=== PATIENT | female | born 1970 | race Hispanic/Latino ===

== ENCOUNTER 2024-04-03 12:29 | Emergency (ER) | payer MEDICAID ==
[~2024-04-03] VITALS: Ht 170.2 cm; Wt 83.9 kg
[~2024-04-03 12:29] MED LIST: AMLO5TAB5 PO; FLUO40CA7 PO; LEVE750T4 PO; TOPI100T31 PO; TOPI25TA42 PO
--- NOTE | 2024-04-03 12:45 | ERN ---
ED Note History of Present Illness Stated Complaint: ANXIETY Chief Complaint: Anxiety/Panic Attack Time Seen by MD: 12:31 Dictation: PATIENT IS A 54-YEAR-OLD FEMALE HERE WITH HER WITH COMPLAINTS OF WANTING TO AND DOES NOT KNOW WHAT TO DO FOR THE LAST MONTH. SHE STATES SHE JUST GETS VERY NERVOUS ANXIOUS WANTS TO RUN CRIES ALL THE TIME. SHE STATES SHE WAS TAKING A GENERIC PROZAC THAT WAS PRESCRIBED TO HER15 YEARS AGO HOWEVER HAS NOT SEEN A DOCTOR FOR THIS IN SEVERAL YEARS. HER 'S WHO IS WITH HER STATES THAT SHE WAS HOSPITALIZED IN THE PAST FOR SUICIDAL IDEATION AND DEPRESSION. HE SAID HE JUST CAN NO LONGER HELP HER AT HOME AND SHE NEEDS PROFESSIONAL HELP. SHE DENIES ANY PLAN FOR SUICIDE. PATIENT TEARFUL WITH EXAMINATION Allergies: Coded Allergies: No Known Allergies (Unverified Allergy, Unknown, 04/30/14) Home Meds Reported Medications Fluoxetine HCl (Prozac) 40 Mg Capsule, 40 MG PO DAILY, CAP 04/30/14 Amlodipine Besylate (Norvasc) 5 Mg Tablet, 5 MG PO DAILY, TAB 04/30/14 Topiramate (Topamax) 100 Mg Tablet, 100 MG PO BID, TAB 04/30/14 Topiramate (Topamax) 25 Mg Tablet, 25 MG PO BID, TAB 04/30/14 Levetiracetam (Keppra) 750 Mg Tablet, 750 MG PO DAILY, TAB 04/30/14 Past Medical History Past Medical History: Depression, Liver Disease, Renal Disese, Seizure Surgical History: None PSYCH History: depression History: Not Applicable RN Note Reviewed/Agreed w/PFSH: Yes Review of System Dictation CONSTITUTIONAL: NEGATIVE EXCEPT FOR HPI HEAD/FACE: NEGATIVE EXCEPT FOR HPI EENT: NEGATIVE EXCEPT FOR HPI RESPIRATORY: NEGATIVE EXCEPT FOR HPI GASTROINTESTINAL/ABDOMINAL: NEGATIVE EXCEPT FOR HPI GENITOURINARY: NEGATIVE EXCEPT FOR HPI MUSCULOSKELETAL: NEGATIVE EXCEPT FOR HPI INTEGUMENTARY: NEGATIVE EXCEPT FOR HPI NEUROLOGICAL/PSYCH: NEGATIVE EXCEPT FOR HPI DEPRESSION WITH SUICIDAL IDEATION HEMATOLOGIC/LYMPHATIC: NEGATIVE EXCEPT FOR HPI ALL SYSTEMS NEGATIVE, EXCEPT NOTED ABOVE. 13 POINT REVIEW OF SYSTEMS ASSESSED AND ALL NEGATIVE EXCEPT FOR ABOVE. Initial Vital Sign VS Vital Signs Date Time Temp Pulse Resp B/P (MAP) Pulse Ox O2 Delivery O2 Flow Rate FiO2 04/03/24 12:31 98.1 96 18 140/93 98 10/8/24 13:04 Room Air* 0 21 Physical Exam Dictation VITAL SIGNS REVIEWED GENERAL APPEARANCE: ALERT, ORIENTED X 3, PATIENT VERY TEARFUL WITH THE EXAM STATES SHE CAN NO LONGER TAKE IT ANYMORE. SHE SAID I NEED HELP AND NOBODY WANTS TO HELP ME. FEEL LIKE DYING HEAD AND FACE: NON-TRAUMATIC. EYES: PERRL, PINK CONJUNCTIVAS, EYELID NO TRAUMA, ANTERIOR CHAMBER WITH ARCUS SENILIS. EARS: PINNAS INTACT AND NO SIGNS OF TRAUMA OR ERYTHEMA EAR CANALS CLEAR AND NO DISCHARGE TM NO ERYTHEMA NOSE: NO DISCHARGE, NO BLEEDING. OROPHARYNX: MOUTH NORMAL, TONGUE PINK, PHARYNX CLEAR,NO ERYTHEMA, TONSILS NO EXUDATES, NO ABSCESSES NOTED, MUCOUS MEMBRANE MOIST NECK: SUPPLE, NON-TENDER, NO THYROMEGALY, NO MASSES, NO JVD, NO BRUITS BREAST:DEFERRED CHEST:NO TENDERNESS, NO CREPITUS, NO PARADOXICAL MOVEMENT, NO RETRACTIONS LUNGS:CLEAR, WELL-VENTILATED, SYMMETRIC, NO RALES, NO WHEEZING, NO RHONCHI, NO STRIDOR, GOOD BREATH SOUNDS BILATERALLY HEART: REGULAR RATE, REGULAR RHYTHM, NO MURMUR, NO GALLOPS VASCULAR: NO PERIPHERAL EDEMA, ABDOMEN: SOFT, POSITIVE BOWEL SOUNDS, NONDISTENDED, NO GUARDING, NONTENDER, NO REBOUND, NO MASSES NO HEPATOMEGALY, NO SPLENOMEGALY, NO CARRERA'S SIGN, NO HERNIAS. RECTAL: DEFERRED GENITAL: DEFERRED NEUROLOGICAL: NORMAL SPEECH, MOTOR FUNCTION INTACT, SENSORY FUNCTION INTACT DEPRESSED AFFECT AND TEARFUL. NO PLAN FOR SUICIDE MUSCULOSKELETAL: NECK NONTENDER, FULL RANGE OF MOTION, BACK NONTENDER, FULL RANGE OF MOTION, EXTREMITIES: NONTENDER, FULL RANGE OF MOTION SKIN: COLOR PINK, DRY, NO TURGOR, NO RASH, NO LACERATIONS, NO ABRASIONS, NO CONTUSIONS. LYMPHATIC: DEFERRED Results (Laboratory/Radiology) Laboratory/Radiology Laboratory Tests Test 04/03/24 10:06 04/03/24 12:53 Urine Color LIGHT-YELLOW (YELLOW) Urine Appearance CLEAR (CLEAR) Urine pH 6.5 (5.0-8.0) Urine Specific [place] 1.008 (1.001-1.031) Urine Protein NEGATIVE mg/dL (NEGATIVE) Urine Glucose (UA) NEGATIVE mg/dL (NEGATIVE) Urine Ketones NEGATIVE mg/dL (NEGATIVE) Urine Occult Blood NEGATIVE (NEGATIVE) Urine Nitrate NEGATIVE (NEGATIVE) Urine Bilirubin NEGATIVE mg/dL (NEGATIVE) Urine Urobilinogen 0.2 mg/dL (0.2-1.0) Urine Leukocyte Esterase 25 Bailee/uL (NEGATIVE) H Urine RBC 0-1 /HPF (0-1) Urine WBC 0-1 /HPF (0-1) Urine Squamous Epithelial Cells RARE /HPF (0-2) Urine Bacteria None /HPF (None Seen) Urine Opiates Screen NEGATIVE (NEGATIVE) Urine Barbiturates Screen NEGATIVE (NEGATIVE) Urine Phencyclidine Screen NEGATIVE (NEGATIVE) Urine Amphetamines Screen NEGATIVE (NEGATIVE) Urine Benzodiazepines Screen POSITIVE (NEGATIVE) H Urine Cocaine Screen NEGATIVE (NEGATIVE) Urine Marijuana (THC) Screen NEGATIVE (NEGATIVE) White Blood Count 3.9 K/uL (4.8-10.8) L Red Blood Count 4.97 MIL/uL (4.00-5.50) Hemoglobin 15.6 g/dL (12.0-16.0) Hematocrit 45.5 % (36-48) Mean Corpuscular Volume 91.5 fL (79-99) Mean Corpuscular Hemoglobin 31.4 pg (27.0-33.0) Mean Corpuscular Hemoglobin Concent 34.3 g/dL (32.0-36.0) Red Cell Distribution Width 11.0 % (11.0-15.5) Platelet Count 186 K/uL (130-400) Mean Platelet Volume 10.6 fL (7.5-10.5) H Immature Granulocyte % (Auto) 0.3 % (0-1) Neutrophils (%) (Auto) 66.1 % (40.0-77.0) Lymphocytes (%) (Auto) 26.9 % (21.0-51.0) Monocytes (%) (Auto) 6.7 % (3.0-13.0) Eosinophils (%) (Auto) 0.0 % (0.0-8.0) Basophils (%) (Auto) 0.0 % (0.0-5.0) Neutrophils # (Auto) 2.6 K/uL (1.8-7.7) Lymphocytes # (Auto) 1.1 K/uL (1.0-4.8) Monocytes # (Auto) 0.3 K/uL (0.1-1.0) Eosinophils # (Auto) 0.00 K/uL (0.00-0.70) Basophils # (Auto) 0.00 K/uL (0.00-0.20) Absolute Immature Granulocyte (auto 0.01 K/uL (0-1) Nucleated Red Blood Cells 0.0 % (0.0-0.19) Sodium Level 146 mmol/L (136-145) H Potassium Level 4.1 mmol/L (3.5-5.1) Chloride Level 107 mmol/L (101-111) Carbon Dioxide Level 29 mmol/L (21-32) Blood Urea Nitrogen 8 mg/dL (7-18) Creatinine 1.0 mg/dL (0.5-1.0) Glomerular Filtration Rate Calc 67 mL/min (>90) Random Glucose 132 mg/dL (70-105) H Total Calcium 9.7 mg/dL (8.5-10.1) Total Creatine Kinase 74 U/L (21-232) Salicylates Level < 2.8 mg/dL (2.8-20.0) L Acetaminophen Level < 1 mcg/mL (10-30) L Serum Alcohol < 3 mg/dL (0-10) Labs Reviewed?: Yes ED Course ED Course Orders Procedure Category Date Status Time Suicide Precautions CPOE 04/03/24 Transmitted 12:42 Drug Screen Urine LAB 04/03/24 Complete 12:42 Cbc With Differential LAB 04/03/24 Complete 12:42 Alcohol, Blood LAB 04/03/24 Complete 12:42 Salicylate LAB 04/03/24 Complete 12:42 Acetaminophen LAB 04/03/24 Complete 12:42 Urinalysis Profile LAB 04/03/24 Complete 12:42 12 Lead Ekg Tracing- EKG 04/03/24 Logged Technical 12:42 Creatine Kinase, Total LAB 04/03/24 Complete 12:42 Basic Metabolic Panel LAB 04/03/24 Complete 12:42 Vital Signs Date Time Temp Pulse Resp B/P (MAP) Pulse Ox O2 Delivery O2 Flow Rate FiO2 04/03/24 15:58 98.2 65 18 115/85 98 Room Air* 0 21 04/03/24 13:04 98.2 65 18 115/95 99 Room Air* 0 21 04/03/24 12:31 98.1 96 18 140/93 98 1732, PATIENT DOES NOT MEET CRITERIA FOR INPATIENT PSYCH TREATMENT. WE WILL BE DISCHARGED HOME FOR OUTPATIENT FOLLOW UP TOMORROW WE WILL BE GIVEN VISTARIL PAMOATE FOR ANXIETY. HAS BEEN AT BEDSIDE IN HIS AWARE SHE WILL BE DISCHARGED Medical Decision Making MDM MEDICAL DISCHARGE MAKING BASED ON LABS FOR PSYCH CLEARANCE. LABS NEGATIVE PATIENT DOES NOT MEET CRITERIA FOR INPATIENT PSYCH TREATMENT. DISCHARGED HOME WITH VISTARIL PAMOATE 100 MG Q 8 HOURS P.R.N. INSOMNIA ANXIETY SHE IS TO FOLLOW UP WITH HER PRIMARY CARE DOCTOR DX & DISP Disposition: Discharge Departure Impression: Primary Impression: Passive suicidal ideations Additional Impression: Depression Condition: Stable Scripts Hydroxyzine Pamoate (Hydroxyzine Pamoate) 100 Mg Capsule 1 CAP PO HS for INSOMNIA/ANXIETY for 30 Days, #30 CAP 0 Refills Prov: ORTEGA CHANEL NP 04/03/24 Additional Instructions: FOLLOW-UP WITH PRIMARY CARE PROVIDER IN 1 TO 2 DAYS. TAKE MEDICATIONS DIRECTED HERE IN THE EMERGENCY ROOM. OKAY TO CONTINUE HOME MEDICATIONS UNLESS OTHERWISE DISCUSSED DURING YOUR VISIT IN THE EMERGENCY ROOM TODAY. RETURN TO YOUR NEAREST EMERGENCY ROOM IF SYMPTOMS WORSEN OR IF THERE IS NO IMPROVEMENT. CALL 911 IF YOU NEED IMMEDIATE ASSISTANCE. TAKE TYLENOL OR MOTRIN TEUM-PFC-DYMUCIP NEEDED AND IF NO CONTRAINDICATIONS ARE PRESENT. INCREASE ORAL HYDRATION. A WOUND CULTURE OR URINE CULTURE WAS ORDERED HERE IN THE EMERGENCY ROOM DEPARTMENT PLEASE FOLLOW-UP WITH PRIMARY CARE PROVIDER AND ADVISE THEM TO GET REPEAT PORTS FROM OUR FACILITY. IF YOU HAD ANY SHOAIB WRAP/SPLINTS THAT WERE APPLIED HERE, PLEASE DO NOT REMOVE THEM UNTIL YOU SEE YOUR PRIMARY CARE OR SPECIALTY. FOLLOW UP WITH YOUR PSYCHIATRIST OR PSYCHOLOGIST NEXT 1-2 DAYS. Referrals: DENA YOUNGBLOOD MD (PCP) Time of Disposition: 17:35 I have reviewed the case, and I agree with, Diagnosis and Plan ORTEGA CHANEL NP Apr 03, 2024 12:45
[2024-04-03 13:02] LABS: HEMATOCRIT 45.5 % (36-48); IMMATURE GRANULOCYTE ABSOLUTE 0.01 K/uL (0-1); LYMPHOCYTES # (AUTO) 1.1 K/uL (1.0-4.8); LYMPHOCYTES % (AUTO) 26.9 % (21.0-51.0); MEAN CORPUSCULAR HEMOGLOBIN 31.4 pg (27.0-33.0); MEAN CORPUSCULAR HGB CONC 34.3 g/dL (32.0-36.0); MEAN CORPUSCULAR VOLUME 91.5 fL (79-99); MONOCYTES # (AUTO) 0.3 K/uL (0.1-1.0); MONOCYTES % (AUTO) 6.7 % (3.0-13.0); NEUTROPHILS # (AUTO) 2.6 K/uL (1.8-7.7); NEUTROPHILS % (AUTO) 66.1 % (40.0-77.0); PLATELET COUNT (AUTO) 186 K/uL (130-400); RED BLOOD CELL COUNT(AUTO) 4.97 MIL/uL (4.00-5.50); WHITE BLOOD COUNT (AUTO) 3.9 K/uL (4.8-10.8)
[2024-04-03 13:10] LABS: CARBON DIOXIDE 29 mmol/L (21-32); CHLORIDE 107 mmol/L (101-111); GLOMERULAR FILTR. RATE CALC 67 mL/min (>90); GLUCOSE,RANDOM 132 mg/dL (70-105); POTASSIUM 4.1 mmol/L (3.5-5.1); SODIUM SERUM 146 mmol/L (136-145); UREA NITROGEN, BLOOD 8 mg/dL (7-18)
[2024-04-03 13:15] LABS: ALCOHOL, BLOOD < 3 mg/dL (0-10); CREATINE KINASE, TOTAL 74 U/L (21-232)
[2024-04-03 13:20] LABS: ACETAMINOPHEN < 1 mcg/mL (10-30); SALICYLATE < 2.8 mg/dL (2.8-20.0)
[2024-04-03 13:45] LABS: AMPHET/METH SCREEN,URINE NEGATIVE (NEGATIVE); BARBITURATE SCREEN, URINE NEGATIVE (NEGATIVE); BENZODIAZEPINES SCREEN,URINE POSITIVE (NEGATIVE); CANNABINOID SCREEN,URINE NEGATIVE (NEGATIVE); COCAINE SCREEN,URINE NEGATIVE (NEGATIVE); OPIATE SCREEN,URINE NEGATIVE (NEGATIVE); PHENCYCLIDINE SCREEN,URINE NEGATIVE (NEGATIVE)
[2024-04-03 14:07] LABS: ADD UA MICROSCOPIC YES; APPEARANCE,URINE CLEAR (CLEAR); BILIRUBIN,URINE NEGATIVE (NEGATIVE); COLOR,URINE LIGHT-YELLOW (YELLOW); GLUCOSE, URINE (UA) NEGATIVE (NEGATIVE); KETONES,URINE NEGATIVE (NEGATIVE); LEUKOCYTE ESTERASE ,URINE 25 Leu/uL (NEGATIVE); NITRATE,URINE NEGATIVE (NEGATIVE); OCCULT BLOOD,URINE NEGATIVE (NEGATIVE); PH,URINE 6.5 (5.0-8.0); PROTEIN,URINE NEGATIVE (NEGATIVE); UROBILINOGEN,URINE 0.2 mg/dL (0.2-1.0)
[2024-04-03 14:28] LABS: RBC,URINE 0-1 /HPF (0-1); SQUAMOUS EPITHELIAL CELL,UR RARE /HPF (0-2); WBC,URINE 0-1 /HPF (0-1)
--- NOTE | 2024-04-03 15:12 | NUR ---
SPOKE TO TROPICAL CRISIS HOTLINE WORKER IN REGARDS TO PT, SHE WILL NOTIFY DIRECT CHILL CASTING OPERATORDISTANCE EDUCATION DIRECTOR TO COME EVAL PT.
[2024-04-03 15:58] VITALS: BP 115/85; PULSE 65; RESP 18; TEMP 98.2; O2SAT 98
--- NOTE | 2024-04-03 17:32 | NUR ---
1720 PT WAS SCREENED BY SARIAH HUBBARD, PT WAS CLEARED FOR HOME NOTIFIED DR RONQUILLO, PT IS CLEAR FOR DISCHARGE HOME. SPOUSE AT BEDSIDE.
[2024-04-03] MEDS ORDERED: HYDR100C2 PO (17:36)
--- NOTE | 2024-04-03 17:47 | NUR ---
PT DISCHARGED HOME STABLE NO DISTRESS VITALS WNL NO C/O PAIN, PT CLEARED TO GO HOME BY ORTEGA ROBERT, PT DRESSED W/ ASSISTANCE FROM SPOUSE, PT INSTRUCTED TO GO SEEK HELP AT [facility] TODAY. PT AND SPOUSE VERBALIZED UNDERSTANDING. PT WALKED OUT W/ SPOUSE WITH PERSONAL BELONGINGS.
== END 2024-04-03 17:52 | disposition home or self-care (01) ==
LOC: EDH 12:29
DX: R45.851 Suicidal ideations (principal); F32.A Depression, unspecified; Z79.899 Other long term (current) drug therapy
CPT/HCPCS: 99283; 82550; 80048; 80305; 85025; 36415; 81001; G0481